=== PATIENT | male | born 1940 | race Caucasian/White ===

== ENCOUNTER 2023-08-14 19:50 | Inpatient (IN) | payer MEDICARE, OTHER ==
[2023-08-14 21:48] VITALS: BMI 30.8
[2023-08-14] MEDS ORDERED: hydrALAZINE 20 MG/ML VIAL SLOW IVP PRN (21:52)
[2023-08-14] MEDS ORDERED: Ipratropium/Albuterol 3 ML NEB NEB PRN (21:52)
[2023-08-14] MEDS ORDERED: Morphine 2 MG/ML VIAL SLOW IVP PRN (21:52)
[2023-08-14] MEDS ORDERED: Ondansetron PF 4 MG/2 ML Vial IVP PRN (21:52)
[2023-08-14] MEDS ORDERED: traMADol HCl 50 MG TAB PO PRN (22:16)
[2023-08-14] MEDS: Sodium Chloride 0.9% 1,000 ML IV SCH (22:35)
[2023-08-14] MEDS: traMADol HCl 50 MG TAB PO SCH (23:32)
[2023-08-14] MEDS: Acetaminophen 500 MG TAB PO SCH (23:33)
[2023-08-15] MEDS: traMADol HCl 50 MG TAB PO SCH ×3 (05:11→17:43)
[2023-08-15] MEDS: Acetaminophen 500 MG TAB PO SCH ×3 (05:11→17:41)
[2023-08-15] MEDS: Sodium Chloride 0.9% 1,000 ML IV SCH ×3 (05:14→20:50)
[2023-08-15 05:44] LABS: #Eosinphils 0.1 thou/uL (0.0-0.7); #Monocytes 1.2 thou/uL (0.11-0.59); #Neutrophils 3.5 thou/uL (1.40-6.50); %Basophils 0.3 % (0.0-1.0); %Eosinophils 1.7 % (0.0-10.0); %Monocytes 19.9 % (0.0-10.0); %Neutrophils 57.6 % (42.0-75.0); Hematocrit 29.3 % (42.0-52.0); Hemoglobin 9.7 g/dL (14.0-18.0); Mean Corpuscular HGB CONC 33.1 g/dL (32.0-36.0); Mean Corpuscular Hemoglobin 34.4 pg (27.0-31.0); Mean Corpuscular Volume 103.9 fl (78.0-98.0); Mean Platelet Volume 10.5 fL (7.4-10.4); RBC Distribution Width 14.2 % (11.5-14.5); Red Blood Cell (RBC) Count 2.82 mill/uL (4.70-6.10)
[2023-08-15 05:47] LABS: Platelet Count 66 10x3/uL (130-400)
[2023-08-15 05:55] LABS: INR-International Normal Ratio 1.4; Prothrombin Time 17.4 sec (12.0-14.7)
[2023-08-15 05:56] LABS: PTT 36.2 sec (22.9-36.1)
[2023-08-15 06:12] LABS: Anion Gap 10 mmol/L (10-20); BUN (Urea Nitrogen) 15 mg/dL (8.4-25.7); Calc. Creatinine Clearance 105 mL/min (70-130); Calcium 7.4 mg/dL (7.8-10.44); Carbon Dioxide 25 mmol/L (23-31); Chloride 109 mmol/L (98-107); Estimated GFR 90; Glucose 105 mg/dL (83-110); Potassium 3.8 mmol/L (3.5-5.1); Sodium 140 mmol/L (136-145)
[2023-08-15] MEDS ORDERED: CEFAZOLIN 2 GM in Sodium Chloride 0.9% 100 ML IVPB SCH (06:15)
[2023-08-15] MEDS ORDERED: PROPOFOL 20 ML ONE (07:16)
[2023-08-15] MEDS ORDERED: Ondansetron PF 4 MG/2 ML Vial ONE (07:17)
[2023-08-15] MEDS ORDERED: Lidocaine 1% PF 5 ML VIAL ONE (07:17)
[2023-08-15] MEDS ORDERED: CEFAZOLIN 2 GM VIAL ONE (07:28)
[2023-08-15] MEDS ORDERED: Sodium Chloride 0.9% 100 ML ONE (07:29)
[2023-08-15] MEDS ORDERED: ePHEDrine Sulfate 50 MG/10 ML VIAL ONE (07:50)
[2023-08-15] MEDS ORDERED: fentaNYL 50 mcg/mL 1 mL Vial ONE (08:58)
[2023-08-15] MEDS: Senokot S 8.6-50 MG TAB PO SCH ×2 (09:00→20:40)
[2023-08-15] MEDS ORDERED: Famotidine/PF 20 mg/2ml Vial SLOW IVP SCH (09:00)
[2023-08-15] MEDS: Polyethylene Glycol 3350 17 GM Packet PO SCH (09:00)
[2023-08-15] MEDS ORDERED: Promethazine HCl 25 MG/ML VIAL IM PRN (09:11)
[2023-08-15] MEDS ORDERED: Ondansetron HCl/PF 4 MG/2 ML Vial IVP PRN (09:11)
[2023-08-15] MEDS: CEFAZOLIN 2 GM in Sodium Chloride 0.9% 100 ML IVPB SCH (17:41)
[2023-08-16] MEDS: Acetaminophen 500 MG TAB PO SCH ×4 (00:07→18:18)
[2023-08-16] MEDS: traMADol HCl 50 MG TAB PO SCH ×4 (00:07→18:18)
[2023-08-16] MEDS: CEFAZOLIN 2 GM in Sodium Chloride 0.9% 100 ML IVPB SCH ×2 (00:08→09:14)
[2023-08-16 07:17] LABS: #Monocytes 1.6 thou/uL (0.11-0.59); #Neutrophils 5.9 thou/uL (1.40-6.50); %Basophils 0.3 % (0.0-1.0); %Eosinophils 0.1 % (0.0-10.0); %Lymphocytes 17.7 % (21.0-51.0); %Monocytes 17.3 % (0.0-10.0); %Neutrophils 64.1 % (42.0-75.0); Hematocrit 23.1 % (42.0-52.0); Hemoglobin 7.7 g/dL (14.0-18.0); Mean Corpuscular HGB CONC 33.3 g/dL (32.0-36.0); Mean Corpuscular Hemoglobin 34.8 pg (27.0-31.0); Mean Corpuscular Volume 104.5 fl (78.0-98.0); Mean Platelet Volume 10.6 fL (7.4-10.4); RBC Distribution Width 14.5 % (11.5-14.5); Red Blood Cell (RBC) Count 2.21 mill/uL (4.70-6.10); White Blood Cell (WBC) Count 9.3 10x3/uL (4.8-10.8)
[2023-08-16 07:38] LABS: Platelet Count 62 10x3/uL (130-400)
[2023-08-16] MEDS: Senokot S 8.6-50 MG TAB PO SCH ×2 (09:14→21:06)
[2023-08-16] MEDS: Escitalopram Oxalate 10 mg Tablet PO SCH (09:59)
[2023-08-16] MEDS: Donepezil HCl 10 MG TAB PO SCH ×2 (09:59→21:06)
[2023-08-16] MEDS: Losartan 25 MG TAB PO SCH (12:00)
[2023-08-16] MEDS: Polyethylene Glycol 3350 17 GM Packet PO SCH (12:00)
[2023-08-16 13:26] LABS: SARS-CoV-2 NAA Rapid Test DETECTED (NotDetected)
[2023-08-16] MEDS ORDERED: NIRMATRELVIR 150 MG/RITONAVIR 100 MG PO SCH (14:00)
[2023-08-16] MEDS: Ferrous Sulfate 325 MG TAB PO SCH (18:18)
[2023-08-16] MEDS ORDERED: Simvastatin 10 MG TAB PO SCH (21:00)
[2023-08-16] MEDS: Ascorbic Acid 500 mg Chewable Tablet PO SCH (21:06)
[2023-08-16] MEDS: Aspirin 81 mg Enteric Coated Tablet PO SCH (21:06)
[2023-08-16] MEDS: NIRMATRELVIR 150 MG/RITONAVIR 100 MG PO SCH (21:06)
[2023-08-17] MEDS: Acetaminophen 500 MG TAB PO SCH ×4 (00:03→17:44)
[2023-08-17] MEDS: traMADol HCl 50 MG TAB PO SCH ×4 (00:03→17:44)
[2023-08-17] MEDS: NIRMATRELVIR 150 MG/RITONAVIR 100 MG PO SCH ×2 (08:54→20:49)
[2023-08-17] MEDS: Escitalopram Oxalate 10 mg Tablet PO SCH (08:54)
[2023-08-17] MEDS: Aspirin 81 mg Enteric Coated Tablet PO SCH (08:54)
[2023-08-17] MEDS: Donepezil HCl 10 MG TAB PO SCH ×2 (08:54→20:42)
[2023-08-17] MEDS: Senokot S 8.6-50 MG TAB PO SCH ×2 (08:54→20:42)
[2023-08-17] MEDS: Losartan 25 MG TAB PO SCH (08:55)
[2023-08-17] MEDS: Ascorbic Acid 500 mg Chewable Tablet PO SCH ×2 (08:55→20:41)
[2023-08-17] MEDS: Ferrous Sulfate 325 MG TAB PO SCH ×2 (08:55→17:45)
[2023-08-17] MEDS: Polyethylene Glycol 3350 17 GM Packet PO SCH (08:55)
[2023-08-17 09:07] LABS: #Eosinphils 0.1 thou/uL (0.0-0.7); #Monocytes 1.2 thou/uL (0.11-0.59); #Neutrophils 6.1 thou/uL (1.40-6.50); %Basophils 0.2 % (0.0-1.0); %Lymphocytes 16.1 % (21.0-51.0); %Monocytes 13.3 % (0.0-10.0); %Neutrophils 68.7 % (42.0-75.0); Hematocrit 20.9 % (42.0-52.0); Hemoglobin 6.9 g/dL (14.0-18.0); Mean Corpuscular Hemoglobin 34.5 pg (27.0-31.0); Mean Corpuscular Volume 104.5 fl (78.0-98.0); RBC Distribution Width 14.6 % (11.5-14.5); White Blood Cell (WBC) Count 8.9 10x3/uL (4.8-10.8)
[2023-08-17 09:14] LABS: Platelet Count 55 10x3/uL (130-400)
[2023-08-17 09:37] LABS: Anion Gap 8 mmol/L (10-20); BUN (Urea Nitrogen) 10 mg/dL (8.4-25.7); Calc. Creatinine Clearance 125 mL/min (70-130); Calcium 7.3 mg/dL (7.8-10.44); Carbon Dioxide 27 mmol/L (23-31); Chloride 107 mmol/L (98-107); Estimated GFR 94; Glucose 116 mg/dL (83-110); Potassium 3.3 mmol/L (3.5-5.1); Sodium 139 mmol/L (136-145)
[2023-08-17] MEDS ORDERED: Calcium Chloride 13.6 MEQ in Sodium Chloride 0.9% 100 ML IVPB SCH (10:15)
[2023-08-17] MEDS ORDERED: CALCIUM GLUC 1 GM/NS 50 ML 1 GM in Premix 1 BAG IVPB SCH (10:30)
[2023-08-17] MEDS ORDERED: Hydrocortisone Sod Succ/PF 100 mg/2 ml Vial IVP SCH (12:15)
[2023-08-17] MEDS: Hydrocortisone Sod Succ/PF 100 mg/2 ml Vial IVP SCH (17:44)
[2023-08-17] MEDS: Potassium Chloride 20 MEQ TAB PO SCH (17:45)
[2023-08-18] MEDS: traMADol HCl 50 MG TAB PO SCH ×5 (00:25→23:31)
[2023-08-18] MEDS: Acetaminophen 500 MG TAB PO SCH ×5 (00:26→23:31)
[2023-08-18] MEDS: Hydrocortisone Sod Succ/PF 100 mg/2 ml Vial IVP SCH ×3 (02:01→17:32)
[2023-08-18 06:52] LABS: #Monocytes 0.9 thou/uL (0.11-0.59); #Neutrophils 9.1 thou/uL (1.40-6.50); %Basophils 0.1 % (0.0-1.0); %Lymphocytes 9.7 % (21.0-51.0); %Neutrophils 80.8 % (42.0-75.0); Hematocrit 22.2 % (42.0-52.0); Hemoglobin 7.6 g/dL (14.0-18.0); Mean Corpuscular HGB CONC 34.2 g/dL (32.0-36.0); Mean Corpuscular Hemoglobin 34.1 pg (27.0-31.0); Mean Platelet Volume 10.3 fL (7.4-10.4); Platelet Count 97 10x3/uL (130-400); RBC Distribution Width 16.7 % (11.5-14.5); Red Blood Cell (RBC) Count 2.23 mill/uL (4.70-6.10); White Blood Cell (WBC) Count 11.3 10x3/uL (4.8-10.8)
[2023-08-18 06:56] LABS: Mean Corpuscular Volume 99.6 fl (78.0-98.0)
[2023-08-18] MEDS ORDERED: Cyclobenzaprine 10 MG TAB PO PRN (07:11)
[2023-08-18] MEDS ORDERED: Ibuprofen 200 MG TAB PO PRN (07:12)
[2023-08-18 07:14] LABS: Albumin 2.7 g/dL (3.4-4.8); Anion Gap 10 mmol/L (10-20); BUN (Urea Nitrogen) 12 mg/dL (8.4-25.7); Calc. Creatinine Clearance 111 mL/min (70-130); Calcium 7.7 mg/dL (7.8-10.44); Carbon Dioxide 26 mmol/L (23-31); Chloride 106 mmol/L (98-107); Estimated GFR 91; Glucose 134 mg/dL (83-110); Magnesium 2.1 mg/dL (1.6-2.6); Phosphorus 1.8 mg/dL (2.3-4.7); Sodium 138 mmol/L (136-145)
[2023-08-18] MEDS: Potassium Chloride 20 MEQ TAB PO SCH ×2 (07:58→17:33)
[2023-08-18] MEDS: Gabapentin 100 MG CAP PO SCH ×2 (07:59→21:12)
[2023-08-18] MEDS: NIRMATRELVIR 150 MG/RITONAVIR 100 MG PO SCH ×2 (07:59→21:13)
[2023-08-18] MEDS: Escitalopram Oxalate 10 mg Tablet PO SCH (07:59)
[2023-08-18] MEDS: Ferrous Sulfate 325 MG TAB PO SCH ×2 (07:59→17:33)
[2023-08-18] MEDS: Ascorbic Acid 500 mg Chewable Tablet PO SCH ×2 (07:59→21:13)
[2023-08-18] MEDS: Donepezil HCl 10 MG TAB PO SCH ×2 (07:59→21:13)
[2023-08-18] MEDS: Losartan 25 MG TAB PO SCH (08:01)
[2023-08-18] MEDS: Polyethylene Glycol 3350 17 GM Packet PO SCH (08:01)
[2023-08-18] MEDS: Senokot S 8.6-50 MG TAB PO SCH ×2 (08:02→21:13)
[2023-08-18] MEDS ORDERED: Aspirin 81 mg Enteric Coated Tablet PO SCH (21:00)
[2023-08-19] MEDS: Hydrocortisone Sod Succ/PF 100 mg/2 ml Vial IVP SCH ×3 (02:03→15:57)
[2023-08-19] MEDS: Acetaminophen 500 MG TAB PO SCH ×3 (06:17→15:56)
[2023-08-19] MEDS: traMADol HCl 50 MG TAB PO SCH ×3 (06:17→15:55)
[2023-08-19 07:01] LABS: #Monocytes 0.8 thou/uL (0.11-0.59); #Neutrophils 7.3 thou/uL (1.40-6.50); %Basophils 0.2 % (0.0-1.0); %Eosinophils 0.2 % (0.0-10.0); %Lymphocytes 15.8 % (21.0-51.0); %Monocytes 8.4 % (0.0-10.0); %Neutrophils 73.7 % (42.0-75.0); Hematocrit 22.3 % (42.0-52.0); Hemoglobin 7.5 g/dL (14.0-18.0); Mean Corpuscular HGB CONC 33.6 g/dL (32.0-36.0); Mean Corpuscular Hemoglobin 33.6 pg (27.0-31.0); Mean Platelet Volume 11.2 fL (7.4-10.4); Platelet Count 119 10x3/uL (130-400); RBC Distribution Width 16.6 % (11.5-14.5); Red Blood Cell (RBC) Count 2.23 mill/uL (4.70-6.10); White Blood Cell (WBC) Count 9.9 10x3/uL (4.8-10.8)
[2023-08-19] MEDS: Escitalopram Oxalate 10 mg Tablet PO SCH (08:59)
[2023-08-19] MEDS: Ascorbic Acid 500 mg Chewable Tablet PO SCH (08:59)
[2023-08-19] MEDS: Potassium Chloride 20 MEQ TAB PO SCH (08:59)
[2023-08-19] MEDS: Donepezil HCl 10 MG TAB PO SCH (08:59)
[2023-08-19] MEDS: Ferrous Sulfate 325 MG TAB PO SCH ×2 (08:59→15:56)
[2023-08-19] MEDS: Gabapentin 100 MG CAP PO SCH (08:59)
[2023-08-19] MEDS ORDERED: Aspirin 81 mg Enteric Coated Tablet PO SCH (09:00)
[2023-08-19] MEDS: Polyethylene Glycol 3350 17 GM Packet PO SCH (09:02)
[2023-08-19] MEDS: Senokot S 8.6-50 MG TAB PO SCH (09:02)
[2023-08-19] MEDS: Losartan 25 MG TAB PO SCH (09:05)
[2023-08-19] MEDS: NIRMATRELVIR 150 MG/RITONAVIR 100 MG PO SCH (09:13)
[2023-08-19 12:40] VITALS: TEMP 97.5
[2023-08-19 14:23] VITALS: BP 138/67
== END 2023-08-19 16:25 | DRG 480 ==
LOC: SURG A 21:46
PROVIDERS: ADMIT Specialist; ATTEND Specialist
PROC: 0QS606Z Reposition Right Upper Femur with Intramedullary Internal Fixation Device, Open Approach (ICD-10-PCS; principal; 2023-08-15)
PROC: XW0DXF5 Introduction of Other New Technology Therapeutic Substance into Mouth and Pharynx, External Approach, New Technology Group 5 (ICD-10-PCS; 2023-08-16)
PROC: 6A550Z2 Pheresis of Platelets, Single (ICD-10-PCS; 2023-08-17)
PROC: 30233N1 Transfusion of Nonautologous Red Blood Cells into Peripheral Vein, Percutaneous Approach (ICD-10-PCS; 2023-08-17)
PROC: 30233J1 Transfusion of Nonautologous Serum Albumin into Peripheral Vein, Percutaneous Approach (ICD-10-PCS; 2023-08-18)
DX: S72.21XA Displaced subtrochanteric fracture of right femur, initial encounter for closed fracture (principal); U07.1 COVID-19; D62 Acute posthemorrhagic anemia; E27.40 Unspecified adrenocortical insufficiency; S72.141A Displaced intertrochanteric fracture of right femur, initial encounter for closed fracture; W18.30XA Fall on same level, unspecified, initial encounter; F03.90 Unspecified dementia, unspecified severity, without behavioral disturbance, psychotic disturbance, mood disturbance, and anxiety; I10 Essential (primary) hypertension; Z79.82 Long term (current) use of aspirin; Z79.899 Other long term (current) drug therapy; S00.83XA Contusion of other part of head, initial encounter; D69.6 Thrombocytopenia, unspecified
CPT/HCPCS: 36415; 36430; 70450; 71045; 72125; 80048; 80053; 82040; 82533; 83735; 84100; 85025; 85610; 85730; 86850; 86900; 86901; 93005; C1713; J0613; J1720; J2405; J2704; J3010; J3490; J7050; P9016; P9035; U0002